=== PATIENT | male | born 1975 | race Caucasian/White ===

== ENCOUNTER → 2020-06-22 15:16 | Outpatient (CLI) | payer SELFPAY ==
--- NOTE | 2020-06-22 15:20 | DI.RAD.S_ITS ---
PROCEDURE: XR HAND LT 2V INDICATIONS: Laceration without foreign body of unspecified,5th finger, finger withou TECHNIQUE: 3 views of the hand(s) acquired. COMPARISON: [facility], CR, FINGER RT, 01/18/2008, 10:43. FINDINGS: Bones: No fractures or dislocations. Carpal bones are normally aligned. No suspicious bony lesions. Soft tissue laceration involving the 5th digit and there is lucency extending through the distal shaft of the proximal phalanx suspicious for incomplete open fracture. Soft tissues: No suspicious soft tissue calcifications. IMPRESSION: Soft tissue laceration with lucency extending through the distal shaft of the 5th proximal phalanx suspicious for incomplete open fracture. No definitive radiodense foreign body seen. Dictated by: Jose Roberto WILLETT Interpreted: Oneyda Kent MD on 06/22/2020 at 16:18 Approved by: Oneyda Kent M.D. on 06/22/2020 at 17:04
== END ==
PROVIDERS: Referring Provider Nurse Practitioner; Visit Provider Nurse Practitioner
DX: S61.217A Laceration without foreign body of left little finger without damage to nail, initial encounter (principal); X58.XXXA Exposure to other specified factors, initial encounter
CPT/HCPCS: 73120